=== PATIENT | female | born 1965 | race Caucasian/White ===

== ENCOUNTER 2016-10-30 08:50 | Outpatient (CLI) | payer OTHER | END 2016-10-30 08:51 | disposition home or self-care (01) | DX: Z00.00 Encounter for general adult medical examination without abnormal findings (principal); E55.9 Vitamin D deficiency, unspecified ==

== ENCOUNTER 2016-11-28 14:12 | Outpatient (CLI) | payer OTHER | END 2016-11-28 14:13 | disposition home or self-care (01) | DX: Z53.9 Procedure and treatment not carried out, unspecified reason (principal) ==

== ENCOUNTER 2017-06-20 11:12 | Outpatient (CLI) | payer OTHER ==
--- NOTE | 2017-06-20 12:27 | Ultrasound Report ---
RIGHT BREAST ULTRASOUND: 06/20/2017 CLINICAL INDICATION: Right nipple inversion. TECHNIQUE: Real-time scanning was performed with players [employer] representative static images obtained. FINDINGS: Ultrasound of the right periareolar breast was performed. Mildly prominent subareolar jairo ts are seen. No intraluminal filling defect is identified. No suspicious mass is seen. IMPRESSION: BENIGN FINDINGS. RECOMMENDATION: Consider surgical consultation for further evaluation of nipple inversion. BIRADS CATEGORY 2 - BENIGN FINDINGS. JOB #: [id number] EXT JOB #:[id number]
--- NOTE | 2017-06-20 13:00 | Mammography Report ---
DIGITAL DIAGNOSTIC BILATERAL MAMMOGRAM: 06/20/2017 CLINICAL INDICATION: Right nipple inversion. COMPARISON: 08/19/2013, 10/23/2011, 02/23/2009 TECHNIQUE: Bilateral CC, laterally exaggerated CC, MLO views, right true lateral view. FINDINGS: The breasts again demonstrate heterogeneously dense fibroglandular parenchyma bilaterally. No suspicious masses, clustered microcalcifications, or regions of architectural distortion are stephanie ntified. Specifically, no mammographic abnormality is appreciated behind the right nipple. Please a lso refer to right breast ultrasound of the same day. IMPRESSION: NEGATIVE EXAMINATION. RECOMMENDATION: SURGICAL CONSULTATION FOR EVALUATION OF RIGHT NIPPLE INVERSION. BIRADS CATEGORY 1 - NEGATIVE. STANDARD QUALIFYING STATEMENTS 1. This examination was reviewed with the aid of Computer-Aided Detection (CAD). 2. A negative or benign imaging report should not delay biopsy if clinically suspicious findings are present. Consider surgical consultation if warranted. More than 5% of cancers are not identified by i maging. 3. Dense breasts may obscure an underlying neoplasm. JOB #: [id number] EXT JOB #:[id number]
== END 2017-06-20 11:13 | disposition home or self-care (01) ==
LOC: DI 11:12
PROVIDERS: ATTEND Physician Assistant
DX: N64.59 Other signs and symptoms in breast (principal)
CPT/HCPCS: 76642; 77066